=== PATIENT | female | born 2000 | race Caucasian/White ===

== ENCOUNTER 2021-04-29 17:18 | Inpatient (IN) | payer BC ==
[~2021-04-29] VITALS: Ht 170.2 cm; Wt 91.6 kg
[2021-04-29 17:49] LABS: HEMOGLOBIN 11.3 gm/dl (12.3-15.3); RED BLOOD COUNT 4.01 M/UL (4.00-5.10); WHITE BLOOD COUNT 8.1 K/UL (4.5-11.0)
[2021-04-29] MEDS ORDERED: URSODIOL300 MG PO (18:17)
[2021-04-29] MEDS ORDERED: MACROBID 100 M100 MG PO (18:17)
[2021-04-30 08:27] LABS: RED BLOOD COUNT 3.94 M/UL (4.00-5.10)
[2021-04-30 08:35] LABS: WHITE BLOOD COUNT 10.3 K/UL (4.5-11.0)
[2021-04-30 08:49] LABS: BUN/CREATININE RATIO 20 (0-10)
[2021-05-02 02:01] LABS: HEMOGLOBIN 10.6 gm/dl (12.3-15.3)
[2021-05-02] MEDS ORDERED: IBUPROFEN600 MG PO (08:52)
[2021-05-02] MEDS ORDERED: COLACE 100MG C100 MG PO (08:52)
== END 2021-05-02 21:27 | disposition home or self-care (01) | DRG 807 ==
LOC: GENOP 17:18 → OB 17:30
PROVIDERS: Obstetrics & Gynecology; ADMIT Obstetrics & Gynecology
PROC: 0U7C7ZZ Dilation of Cervix, Via Natural or Artificial Opening (ICD-10-PCS; 2021-04-29)
PROC: 10E0XZZ Delivery of Products of Conception, External Approach (ICD-10-PCS; principal; 2021-05-01)
PROC: 10907ZC Drainage of Amniotic Fluid, Therapeutic from Products of Conception, Via Natural or Artificial Opening (ICD-10-PCS; 2021-05-01)
PROC: 0HQ9XZZ Repair Perineum Skin, External Approach (ICD-10-PCS; 2021-05-01)
DX: O26.62 Liver and biliary tract disorders in childbirth (principal); Z37.0 Single live birth; K76.89 Other specified diseases of liver; Z3A.37 37 weeks gestation of pregnancy; O99.284 Endocrine, nutritional and metabolic diseases complicating childbirth; E28.2 Polycystic ovarian syndrome; O12.14 Gestational proteinuria, complicating childbirth; Z20.822 Contact with and (suspected) exposure to COVID-19; O76 Abnormality in fetal heart rate and rhythm complicating labor and delivery; O70.0 First degree perineal laceration during delivery
CPT/HCPCS: 36415; 80053; 81001; 82570; 82800; 82810; 84156; 84550; 85014; 85018; 85025; J2590; J2795; J7120